=== PATIENT | female | born 2000 | race Caucasian/White ===

== ENCOUNTER 2023-09-14 22:45 | Emergency (ER) | payer OTHER ==
[~2023-09-14] VITALS: Ht 162.6 cm; Wt 61.4 kg
[~2023-09-14 22:45] MED LIST: ZOFRAN ODT4 MG PO
[2023-09-14 23:06] VITALS: TEMP 98.3
[2023-09-14] MEDS ORDERED: Ondansetron 4 MG/2 ML VIAL IV ONE (23:45)
[2023-09-14] MEDS ORDERED: NS 1,000 ML IV ONE (23:45)
[2023-09-14] MEDS ORDERED: Ketorolac 30 MG/ML VIAL IV ONE (23:45)
[2023-09-14 23:51] LABS: COLLECTION METHOD CLEAN CATCH
[2023-09-15 00:19] LABS: BASO % 0.1 % (0.0-2.0); EOS % 0.3 % (0.0-4.0); GRAN % 76.8 % (42.2-75.2); HEMOGLOBIN 10.9 g/dl (12.5-16.0); LYMPH # 1.8 K/mm3 (1.2-3.4); LYMPH % 15.1 % (20.0-51.0); MEAN CELL VOLUME 79 fl (80.0-100.0); MEAN CORPUSCULAR HEMOGLOBIN 24 pg (27-31); MEAN CORPUSCULAR HGB CONC 31 g/dl (33.0-37.0); MEAN PLATELET VOLUME 9.7 fl (7.4-10.4); MONO # 0.9 K/mm3 (0.1-0.6); MONO % 7.4 % (1.7-9.3); PLATELET COUNT 349 K/mm3 (130-400); RED BLOOD COUNT 4.53 M/mm3 (4.10-5.30); REDCELL DISTRIBUTION WIDTH-CV 15.3 % (11.5-14.5)
[2023-09-15 00:22] LABS: HEMATOCRIT 35.6 % (37.0-47.0)
[2023-09-15 00:34] LABS: URINE APPEARANCE CLEAR (CLEAR/HAZY); URINE BLOOD 2+ (NEGATIVE); URINE COLOR ORANGE (YELLOW); URINE GLUCOSE NEGATIVE (NEGATIVE); URINE KETONE NEGATIVE (NEGATIVE); URINE NITRATE POSITIVE (NEGATIVE); URINE PROTEIN(semi-quant) 2+ (NEGATIVE)
[2023-09-15 00:35] LABS: ALBUMIN 4.2 g/dL (3.5-5.0); BILIRUBIN,TOTAL 0.5 mg/dL (0.2-1.2); CALCIUM 9.4 mg/dL (8.4-10.2); CREATININE, serum 0.77 mg/dL (0.57-1.11); POTASSIUM 3.2 mEq/L (3.5-4.5); TOTAL PROTEIN 7.9 g/dl (6.2-8.1)
[2023-09-15] MEDS ORDERED: cefTRIAXone 1 G in Water For Injection,Sterile 10 ML IV ONE (00:45)
[2023-09-15] MEDS ORDERED: NS 100 ML IV SCH (00:54)
[2023-09-15] MEDS ORDERED: Iohexol 300 - 100 ML VIAL IV ONE (00:54)
[2023-09-15] MEDS ORDERED: OMNICEF 300MG300 MG PO (02:21)
[2023-09-15 02:40] VITALS: BP 109/75; PULSE 63
== END 2023-09-15 02:50 | disposition home or self-care (01) ==
LOC: COL.ER 22:45
PROVIDERS: Nurse Practitioner Primary Care
DX: N39.0 Urinary tract infection, site not specified (principal)
CPT/HCPCS: J0696; J1885; J2405; J7030; Q9967